=== PATIENT | female | born 1950 | race Two or more races ===

== ENCOUNTER 2016-07-28 07:28 | Outpatient (CLI) | payer OTHER ==
[2016-07-28 07:55] LABS: % BASOPHILS 0.4 % (0.0-2.0); % EOSINOPHILS 2.7 % (0.0-5.0); % LYMPHOCYTES 29.5 % (20.0-50.0); % MONOCYTES 6.6 % (2.0-10.0); % NEUTROPHILS 60.8 % (40.0-80.0); HEMATOCRIT 43.6 % (35.0-45.0); HEMOGLOBIN 14.8 gm/dL (11.7-16.1); MEAN CELL VOLUME 84.7 fl (81-100); MEAN CORPUSCULAR HEMOGLOBIN 28.8 pg (27.0-31.0); MEAN PLATELET VOLUME 7.9 fl; NEUTROPHILE ABSOLUTE 3.4 Th/cmm (1.8-8.0); PLATELET COUNT 227 Th/cmm (150-400); RED BLOOD COUNT 5.15 Mil/cmm (3.80-5.20); RED CELL DISTRIBUTION WIDTH 11.4 % (11.5-20.0)
[2016-07-28 07:58] LABS: WHITE BLOOD COUNT 5.5 Th/cmm (4.8-10.8)
[2016-07-28 08:15] LABS: ALB/GLOB RATIO 1.4 (1.0-1.8); ALKALINE PHOSPHATASE 67 U/L (34-104); ANION GAP 13.8 (7.0-16.0); BILIRUBIN,TOTAL 0.8 mg/dL (0.3-1.0); BUN - UREA NITROGEN 22 mg/dL (7-25); BUN/CREATININE RATIO 27.5; CALCIUM SERUM 9.8 mg/dL (8.6-10.3); CARBON DIOXIDE 25.4 mEq/L (21.0-31.0); CHLORIDE 103 mEq/L (98-107); CHOLESTEROL 228 mg/dL (<200); CREATININE - SERUM 0.8 mg/dL (0.6-1.2); GLUCOSE 131 mg/dL (70-105); POTASSIUM SERUM 4.2 mEq/L (3.5-5.1); SGOT 25 U/L (13-39); SGPT/ALT 21 U/L (7-52); SODIUM SERUM 138 mEq/L (136-145); TRIGLYCERIDES 102 mg/dL (<150)
== END 2016-07-28 08:00 | disposition home or self-care (01) ==
LOC: LAB 07:28
PROVIDERS: ATTEND Internal Medicine
DX: N18.9 Chronic kidney disease, unspecified (principal)
CPT/HCPCS: 36415-UA; 80053-TC; 80061-TC; 83036-90; 85025-TC

== ENCOUNTER 2016-10-22 14:05 | Emergency (ER) | payer OTHER ==
--- NOTE | 2016-10-22 14:39 | ED Physician Chart ---
Chief Complaint/HPI - Patient Information Date Seen:: 10/22/16 Time Seen:: 14:15 Chief Complaint:: headache back pain and dizziness History of Present Illness:: Patient developed headache, back pain and dizziness this morning. She's had no cough, vomiting or diarrhea. Patient felt warm and had chills. Allergies:: Allergies Allergy/AdvReac Type Severity Reaction Status Date / Time No Known Allergies Allergy Verified 01/20/16 09:22 Review of Systems - Review of Systems General/Constitutional: Fever, Chills Skin: No skin lesions Head: No headache, Light headed Eyes: No loss of vision ENT: No earache, No sore throat Neck: No neck pain Cardio Vascular: No chest pain, No edema Pulmonary: No SOB, No cough GI: No nausea, No vomiting, No diarrhea G/U: No dysuria Musculoskeletal: No bone or joint pain, No back pain Endocrine: No polyuria, Polydipsia Psychiatric: No prior psych history, No depression Hematopoietic: No bruising Allergic/Immuno: No urticaria Neurological: No syncope, No focal symptoms Past Medical History - Past Medical History Past Medical History: DM Family History: Diabetes Melitus, HTN Social History: Non Smoker, No Alcohol Surgical History: other (varicose veins) Psychiatricy History: None Medication: Reviewed Family Medical History - Family Member Mother Living Status: Still Living Hx Family Diabetes: Yes Physical Exam - Physical Examination General/Constitutional: Well-developed, well-nourished, Alert Head: Atraumatic Eyes: Lids, conjuctiva normal, PERRL Skin: Nl inspection, No rash, No skin lesions, No ecchymosis ENMT: External ears, nose nl, TM canals nl, Nasal exam nl, Lips, teeth, gums nl , Oropharynx nl, Tonsils nl Neck: No nuchal rigidity Respiratory: Nl effort/Exclusion, Clear to Auscultation, No Wheeze/Rhonchi/Rales Cardio Vascular: RRR, No murmur, gallop, rubs GI: No organomegaly, No hernia, Normal BS's, Nondistended Other GI comments:: Left lower quadrant tenderness : No CVA tenderness Extremities: Normal digits & nails Neuro/Psych: Alert/oriented, No focal deficits Misc: Normal back Labs/Radiology/EKG Results - Lab Results Results: Laboratory Results - last 24 hr 10/22/16 10/22/16 14:40 14:40 WBC 5.0 RBC 4.91 Hgb 13.8 Hct 40.5 MCV 82.4 MCH 28.1 MCHC Differential 34.1 RDW 12.0 Plt Count 186 MPV 7.8 Neutrophils % 76.5 Lymphocytes % 14.0 L Monocytes % 8.0 Eosinophils % 1.0 Basophils % 0.5 Sodium 133 L Potassium 4.2 Chloride 104 Carbon Dioxide 27.1 Anion Gap 6.1 L BUN 18 Creatinine 0.9 Est GFR ( Amer) > 60.0 Est GFR (Non-Af Amer) > 60.0 BUN/Creatinine Ratio 20.0 Glucose 145 H Calcium 9.4 - EKG Interpretations Rate & Rhythm: sinus tach rate 111 [place]: right Comments:: incomplete RBBB Assessment - Assessment General Assessment: At 1538 patient's dizziness was slightly improved. We'll give the patient Tylenol for her headache before discharge ED Septic Shock - . Is Septic Shock (SBP<90, OR Lactate>4 mmol\L) present?: No Reassessment (Disposition) - Reassessment Reassessment Condition:: Improved - Diagnosis Diagnosis:: Acute viral syndrome; benign positional vertigo - Aftercare/Follow up Instructions Aftercare/Follow-Up Instructions:: Refer to Discharge Instructions Medication Prescribed:: Antivert 25 mg #20 to take 13 times a day - Patient Disposition Discharge/Transfer:: Home Condition at Disposition:: Stable, Improved
[2016-10-22 14:48] LABS: % BASOPHILS 0.5 % (0.0-2.0); % NEUTROPHILS 76.5 % (40.0-80.0); HEMATOCRIT 40.5 % (35.0-45.0); HEMOGLOBIN 13.8 gm/dL (11.7-16.1); MEAN CELL VOLUME 82.4 fl (81-100); MEAN CORPUSCULAR HEMOGLOBIN 28.1 pg (27.0-31.0); MEAN CORPUSCULAR HGB CONC 34.1 pg (28.0-36.0); MEAN PLATELET VOLUME 7.8 fl; NEUTROPHILE ABSOLUTE 3.9 Th/cmm (1.8-8.0); PLATELET COUNT 186 Th/cmm (150-400); RED BLOOD COUNT 4.91 Mil/cmm (3.80-5.20)
[2016-10-22 15:02] LABS: ANION GAP 6.1 (7.0-16.0); BUN - UREA NITROGEN 18 mg/dL (7-25); CALCIUM SERUM 9.4 mg/dL (8.6-10.3); CARBON DIOXIDE 27.1 mEq/L (21.0-31.0); CHLORIDE 104 mEq/L (98-107); CREATININE - SERUM 0.9 mg/dL (0.6-1.2); GLUCOSE 145 mg/dL (70-105); POTASSIUM SERUM 4.2 mEq/L (3.5-5.1); SODIUM SERUM 133 mEq/L (136-145)
== END 2016-10-22 16:05 | disposition home or self-care (01) ==
LOC: ER 14:05
DX: H81.10 Benign paroxysmal vertigo, unspecified ear (principal); B34.9 Viral infection, unspecified
CPT/HCPCS: 36415-UA; 80048-TC; 85025-TC; 93005

== ENCOUNTER 2016-10-24 08:11 | Outpatient (CLI) | payer OTHER ==
[2016-10-24 08:46] LABS: RED CELL DISTRIBUTION WIDTH 12.4 % (11.5-20.0)
[2016-10-24 08:52] LABS: HEMOGLOBIN 15.3 gm/dL (11.7-16.1); MEAN CELL VOLUME 84.3 fl (81-100); MEAN CORPUSCULAR HEMOGLOBIN 27.9 pg (27.0-31.0); MEAN CORPUSCULAR HGB CONC 33.1 pg (28.0-36.0); MEAN PLATELET VOLUME 8.1 fl; PLATELET COUNT 185 Th/cmm (150-400); WHITE BLOOD COUNT 4.5 Th/cmm (4.8-10.8)
[2016-10-24 09:01] LABS: HEMATOCRIT 46.3 % (35.0-45.0)
[2016-10-24 09:10] LABS: ALB/GLOB RATIO 1.3 (1.0-1.8); ALKALINE PHOSPHATASE 57 U/L (34-104); ANION GAP 4.9 (7.0-16.0); BILIRUBIN,TOTAL 0.6 mg/dL (0.3-1.0); BUN - UREA NITROGEN 16 mg/dL (7-25); CALCIUM SERUM 9.3 mg/dL (8.6-10.3); CARBON DIOXIDE 27.7 mEq/L (21.0-31.0); CHLORIDE 105 mEq/L (98-107); CHOLESTEROL 249 mg/dL (<200); GLUCOSE 135 mg/dL (70-105); POTASSIUM SERUM 4.6 mEq/L (3.5-5.1); SGOT 42 U/L (13-39); SGPT/ALT 36 U/L (7-52); SODIUM SERUM 133 mEq/L (136-145); TRIGLYCERIDES 138 mg/dL (<150)
[2016-10-24 09:30] LABS: BAND NEUTROPHILE 4 % (0-10); EOSINOPHIL 1 % (0-5); NEUTROPHILS 45 % (40-80); TOTAL CELLS COUNTED 100
[2016-10-24 09:31] LABS: PLATELET ESTIMATE ADEQUATE (NORMAL)
== END 2016-10-24 08:57 | disposition home or self-care (01) ==
LOC: LAB 08:11
PROVIDERS: ATTEND Internal Medicine
DX: E11.21 Type 2 diabetes mellitus with diabetic nephropathy (principal); E78.5 Hyperlipidemia, unspecified; K21.9 Gastro-esophageal reflux disease without esophagitis; I10 Essential (primary) hypertension
CPT/HCPCS: 36415-UA; 80053-TC; 80061-TC; 82570-TC; 83036-90; 84156-TC; 85007-TC; 85027-TC

== ENCOUNTER 2017-02-09 15:24 | Outpatient (CLI) | payer OTHER ==
[2017-02-09 16:12] LABS: URINE BILIRUBIN NEGATIVE (NEGATIVE); URINE COLOR RED; URINE GLUCOSE (UA) 100 mg/dL (NEGATIVE); URINE KETONE NEGATIVE (NEGATIVE)
[2017-02-09 16:13] LABS: URINE BLOOD LARGE (NEGATIVE)
[2017-02-09 16:14] LABS: URINE PROTEIN >100 mg/dL (NEGATIVE); URINE RBC >100 /hpf (0-5)
[2017-02-09 16:23] LABS: URINE BACTERIA MANY /hpf (NONE SEEN); URINE EPITHELIAL CELLS NONE SEEN /lpf (FEW); URINE WBC >100 /hpf (0-5)
== END 2017-02-09 15:45 ==
LOC: LAB 15:24
DX: R80.9 Proteinuria, unspecified (principal)
CPT/HCPCS: 81001-TC; 87086-90

== ENCOUNTER 2017-03-04 06:59 | Outpatient (CLI) | payer OTHER ==
[2017-03-04 07:28] LABS: % BASOPHILS 0.2 % (0.0-2.0); % EOSINOPHILS 2.5 % (0.0-5.0); % LYMPHOCYTES 29.5 % (20.0-50.0); % MONOCYTES 7.8 % (2.0-10.0); HEMATOCRIT 43.7 % (41.0-60); HEMOGLOBIN 14.7 gm/dL (12-16); MEAN CELL VOLUME 85.9 fl (81-100); MEAN CORPUSCULAR HEMOGLOBIN 28.9 pg (27.0-31.0); MEAN CORPUSCULAR HGB CONC 33.7 pg (28.0-36.0); MEAN PLATELET VOLUME 7.8 fl; NEUTROPHILE ABSOLUTE 3.6 Th/cmm (1.8-8.0); RED BLOOD COUNT 5.09 Mil/cmm (3.80-5.20); RED CELL DISTRIBUTION WIDTH 11.8 % (11.5-20.0)
[2017-03-04 07:32] LABS: WHITE BLOOD COUNT 5.9 Th/cmm (4.8-10.8)
[2017-03-04 07:33] LABS: PLATELET COUNT 246 Th/cmm (150-400)
[2017-03-04 07:58] LABS: ALB/GLOB RATIO 1.5 (1.0-1.8); ALKALINE PHOSPHATASE 56 U/L (34-104); ANION GAP 7.8 (7.0-16.0); BILIRUBIN,TOTAL 0.8 mg/dL (0.3-1.0); BUN - UREA NITROGEN 25 mg/dL (7-25); BUN/CREATININE RATIO 31.3; CALCIUM SERUM 9.6 mg/dL (8.6-10.3); CARBON DIOXIDE 29.6 mEq/L (21.0-31.0); CHLORIDE 104 mEq/L (98-107); CHOLESTEROL 254 mg/dL (<200); CREATININE - SERUM 0.8 mg/dL (0.6-1.2); GLUCOSE 117 mg/dL (70-105); POTASSIUM SERUM 4.4 mEq/L (3.5-5.1); SGOT 31 U/L (13-39); SGPT/ALT 27 U/L (7-52); SODIUM SERUM 137 mEq/L (136-145); TRIGLYCERIDES 142 mg/dL (<150)
[2017-03-05 13:14] LABS: MICROALBUMIN RANDOM RUINE 11.1 ug/mL (Not Estab.)
== END 2017-03-04 07:23 | disposition home or self-care (01) ==
LOC: LAB 06:59
PROVIDERS: ATTEND Internal Medicine
DX: E11.22 Type 2 diabetes mellitus with diabetic chronic kidney disease (principal); N18.3 Chronic kidney disease, stage 3 (moderate); E78.5 Hyperlipidemia, unspecified
CPT/HCPCS: 36415-UA; 80053-TC; 80061-TC; 82043-90; 83036-90; 85025-TC

== ENCOUNTER 2017-06-01 06:56 | Outpatient (CLI) | payer OTHER ==
[2017-06-01 08:12] LABS: % BASOPHILS 0.8 % (0.0-2.0); % EOSINOPHILS 2.7 % (0.0-5.0); % LYMPHOCYTES 25.8 % (20.0-50.0); % MONOCYTES 6.7 % (2.0-10.0); EOSINOPHILE ABSOLUTE 0.1 Th/cmm (0.1-0.4); HEMATOCRIT 43.8 % (41.0-60); HEMOGLOBIN 14.7 gm/dL (12-16); LYMPHOCYTE ABSOLUTE 1.4 Th/cmm (1.5-3.0); MEAN CELL VOLUME 85.1 fl (81-100); MEAN CORPUSCULAR HEMOGLOBIN 28.5 pg (27.0-31.0); MEAN CORPUSCULAR HGB CONC 33.5 pg (28.0-36.0); MEAN PLATELET VOLUME 7.6 fl; MONOCYTE ABSOLUTE 0.4 Th/cmm (0.3-1.0); NEUTROPHILE ABSOLUTE 3.6 Th/cmm (1.8-8.0); PLATELET COUNT 274 Th/cmm (150-400); RED BLOOD COUNT 5.15 Mil/cmm (3.80-5.20); RED CELL DISTRIBUTION WIDTH 12.3 % (11.5-20.0); WHITE BLOOD COUNT 5.5 Th/cmm (4.8-10.8)
[2017-06-01 08:47] LABS: ALB/GLOB RATIO 1.7 (1.0-1.8); ALBUMIN 4.5 gm/dL (3.7-5.3); ALKALINE PHOSPHATASE 62 U/L (34-104); ANION GAP 9.8 (7.0-16.0); BUN - UREA NITROGEN 22 mg/dL (7-25); CALCIUM SERUM 9.6 mg/dL (8.6-10.3); CARBON DIOXIDE 28.4 mEq/L (21.0-31.0); CHLORIDE 103 mEq/L (98-107); CHOLESTEROL 223 mg/dL (<200); CREATININE - SERUM 0.9 mg/dL (0.6-1.2); GFR AFRICAN-AMERICAN > 60.0 ml/min (>90); GFR NON AFRICAN-AMERICAN > 60.0 ml/min; GLUCOSE 148 mg/dL (70-105); HDL -HIGH DENSITY LIPOPROTEIN 61 mg/dL (23-92); POTASSIUM SERUM 4.2 mEq/L (3.5-5.1); SGOT 28 U/L (13-39); SGPT/ALT 26 U/L (7-52); SODIUM SERUM 137 mEq/L (136-145); TOTAL PROTEIN,SERUM 7.2 gm/dL (6.0-8.3); TRIGLYCERIDES 139 mg/dL (<150)
[2017-06-01 14:46] LABS: A1C % 7.6 % (4.0-6.0)
== END 2017-06-01 07:50 | disposition home or self-care (01) ==
LOC: LAB 06:56
PROVIDERS: ATTEND Internal Medicine
DX: E11.9 Type 2 diabetes mellitus without complications (principal)
CPT/HCPCS: 36415-UA; 80053-TC; 80061-TC; 83036-90; 85025-TC

== ENCOUNTER 2018-02-09 07:03 | Outpatient (CLI) | payer OTHER ==
[2018-02-09 07:37] LABS: % BASOPHILS 0.9 % (0.0-2.0); % EOSINOPHILS 2.8 % (0.0-5.0); % LYMPHOCYTES 12.6 % (20.0-50.0); % MONOCYTES 5.4 % (2.0-10.0); % NEUTROPHILS 78.3 % (40.0-80.0); EOSINOPHILE ABSOLUTE 0.1 Th/cmm (0.1-0.4); HEMATOCRIT 41.5 % (41.0-60); HEMOGLOBIN 14.1 gm/dL (12-16); LYMPHOCYTE ABSOLUTE 0.7 Th/cmm (1.5-3.0); MEAN CORPUSCULAR HEMOGLOBIN 28.4 pg (27.0-31.0); MEAN CORPUSCULAR HGB CONC 33.9 pg (28.0-36.0); MEAN PLATELET VOLUME 7.9 fl; MONOCYTE ABSOLUTE 0.3 Th/cmm (0.3-1.0); NEUTROPHILE ABSOLUTE 4.2 Th/cmm (1.8-8.0); PLATELET COUNT 205 Th/cmm (150-400); RED BLOOD COUNT 4.94 Mil/cmm (3.80-5.20); RED CELL DISTRIBUTION WIDTH 12.1 % (11.5-20.0); WHITE BLOOD COUNT 5.3 Th/cmm (4.8-10.8)
[2018-02-09 07:56] LABS: ALB/GLOB RATIO 1.8 (1.0-1.8); ALBUMIN 4.2 gm/dL (3.7-5.3); ALKALINE PHOSPHATASE 69 U/L (34-104); ANION GAP 9.3 (7.0-16.0); BILIRUBIN,TOTAL 0.6 mg/dL (0.3-1.0); BUN - UREA NITROGEN 24 mg/dL (7-25); CALCIUM SERUM 9.5 mg/dL (8.6-10.3); CARBON DIOXIDE 27.4 mEq/L (21.0-31.0); CHLORIDE 103 mEq/L (98-107); CHOLESTEROL 176 mg/dL (<200); GFR AFRICAN-AMERICAN > 60.0 ml/min (>90); GFR NON AFRICAN-AMERICAN 58.6 ml/min; GLUCOSE 139 mg/dL (70-105); HDL -HIGH DENSITY LIPOPROTEIN 38 mg/dL (23-92); POTASSIUM SERUM 4.7 mEq/L (3.5-5.1); SGOT 22 U/L (13-39); SGPT/ALT 18 U/L (7-52); SODIUM SERUM 135 mEq/L (136-145); TOTAL PROTEIN,SERUM 6.6 gm/dL (6.0-8.3); TRIGLYCERIDES 200 mg/dL (<150)
== END 2018-02-09 07:30 | disposition home or self-care (01) ==
LOC: LAB 07:03
PROVIDERS: ATTEND Internal Medicine
DX: I12.9 Hypertensive chronic kidney disease with stage 1 through stage 4 chronic kidney disease, or unspecified chronic kidney disease (principal); E11.22 Type 2 diabetes mellitus with diabetic chronic kidney disease; N18.3 Chronic kidney disease, stage 3 (moderate); R80.9 Proteinuria, unspecified
CPT/HCPCS: 36415-UA; 80053-TC; 80061-TC; 83036-90; 85025-TC

== ENCOUNTER 2018-07-20 06:55 | Outpatient (CLI) | payer OTHER ==
[2018-07-20 07:26] LABS: % BASOPHILS 0.2 % (0.0-2.0); % EOSINOPHILS 5.2 % (0.0-5.0); % LYMPHOCYTES 39.6 % (20.0-50.0); % MONOCYTES 11.4 % (2.0-10.0); % NEUTROPHILS 43.6 % (40.0-80.0); EOSINOPHILE ABSOLUTE 0.2 Th/cmm (0.1-0.4); HEMATOCRIT 45.8 % (41.0-60); HEMOGLOBIN 14.9 gm/dL (12-16); LYMPHOCYTE ABSOLUTE 1.8 Th/cmm (1.5-3.0); MEAN CELL VOLUME 83.9 fl (81-100); MEAN CORPUSCULAR HEMOGLOBIN 27.3 pg (27.0-31.0); MEAN CORPUSCULAR HGB CONC 32.6 pg (28.0-36.0); MEAN PLATELET VOLUME 7.7 fl; MONOCYTE ABSOLUTE 0.5 Th/cmm (0.3-1.0); NEUTROPHILE ABSOLUTE 2.1 Th/cmm (1.8-8.0); PLATELET COUNT 229 Th/cmm (150-400); RED BLOOD COUNT 5.45 Mil/cmm (3.80-5.20); RED CELL DISTRIBUTION WIDTH 12.6 % (11.5-20.0); WHITE BLOOD COUNT 4.6 Th/cmm (4.8-10.8)
[2018-07-20 07:46] LABS: ALB/GLOB RATIO 1.5 (1.0-1.8); ALBUMIN 4.4 gm/dL (3.7-5.3); ALKALINE PHOSPHATASE 72 U/L (34-104); BILIRUBIN,TOTAL 0.6 mg/dL (0.3-1.0); BUN - UREA NITROGEN 14 mg/dL (7-25); CALCIUM SERUM 9.3 mg/dL (8.6-10.3); CARBON DIOXIDE 26.7 mEq/L (21.0-31.0); CHLORIDE 104 mEq/L (98-107); CHOLESTEROL 192 mg/dL (<200); GFR AFRICAN-AMERICAN > 60.0 ml/min (>90); GFR NON AFRICAN-AMERICAN 58.6 ml/min; GLUCOSE 166 mg/dL (70-105); HDL -HIGH DENSITY LIPOPROTEIN 47 mg/dL (23-92); POTASSIUM SERUM 4.7 mEq/L (3.5-5.1); SGOT 23 U/L (13-39); SGPT/ALT 17 U/L (7-52); SODIUM SERUM 140 mEq/L (136-145); TOTAL PROTEIN,SERUM 7.4 gm/dL (6.0-8.3); TRIGLYCERIDES 105 mg/dL (<150)
[2018-07-20 11:01] LABS: URINE SOURCE RANDOM
[2018-07-20 11:07] LABS: URINE BILIRUBIN NEGATIVE (NEGATIVE); URINE BLOOD TRACE (NEGATIVE); URINE GLUCOSE (UA) NEGATIVE (NEGATIVE); URINE KETONE TRACE mg/dL (NEGATIVE); URINE LEUKOCYTE ESTERASE TRACE (NEGATIVE); URINE MICROSCOPIC INDICATED? YES; URINE NITRATE NEGATIVE (NEGATIVE); URINE PROTEIN TRACE mg/dL (NEGATIVE); URINE UROBILINOGEN 0.2 E.U./dL (0.2 - 1.0)
[2018-07-20 11:25] LABS: URINE CLARITY SLIGHTLY HAZY (CLEAR); URINE COLOR YELLOW
[2018-07-20 11:29] LABS: URINE BACTERIA FEW /hpf (NONE SEEN); URINE EPITHELIAL CELLS FEW /lpf (FEW)
== END 2018-07-20 07:16 | disposition home or self-care (01) ==
LOC: LAB 06:55
PROVIDERS: ATTEND Internal Medicine
DX: N17.9 Acute kidney failure, unspecified (principal); I12.9 Hypertensive chronic kidney disease with stage 1 through stage 4 chronic kidney disease, or unspecified chronic kidney disease; E11.22 Type 2 diabetes mellitus with diabetic chronic kidney disease; N18.3 Chronic kidney disease, stage 3 (moderate); E11.21 Type 2 diabetes mellitus with diabetic nephropathy
CPT/HCPCS: 36415-UA; 80053-TC; 80061-TC; 81001-TC; 82570-TC; 83036-90; 85025-TC

== ENCOUNTER 2019-01-18 08:26 | Outpatient (CLI) | payer OTHER ==
[2019-01-18 08:36] LABS: URINE SOURCE RANDOM
[2019-01-18 09:18] LABS: EOSINOPHILE ABSOLUTE 0.1 Th/cmm (0.1-0.4); MEAN CORPUSCULAR HEMOGLOBIN 27.9 pg (27.0-31.0); MONOCYTE ABSOLUTE 0.4 Th/cmm (0.3-1.0); NEUTROPHILE ABSOLUTE 3.4 Th/cmm (1.8-8.0)
[2019-01-18 09:31] LABS: % BASOPHILS 0.6 % (0.0-2.0); % EOSINOPHILS 1.9 % (0.0-5.0); % LYMPHOCYTES 32.1 % (20.0-50.0); % MONOCYTES 7.4 % (2.0-10.0); HEMATOCRIT 46.2 % (41.0-60); HEMOGLOBIN 15.1 gm/dL (12-16); LYMPHOCYTE ABSOLUTE 1.8 Th/cmm (1.5-3.0); MEAN CELL VOLUME 85.2 fl (81-100); MEAN CORPUSCULAR HGB CONC 32.7 pg (28.0-36.0); PLATELET COUNT 263 Th/cmm (150-400); RED BLOOD COUNT 5.43 Mil/cmm (3.80-5.20); RED CELL DISTRIBUTION WIDTH 13.1 % (11.5-20.0); WHITE BLOOD COUNT 5.7 Th/cmm (4.8-10.8)
[2019-01-18 09:42] LABS: ALB/GLOB RATIO 1.5 (1.0-1.8); ALBUMIN 4.2 gm/dL (3.7-5.3); ALKALINE PHOSPHATASE 70 U/L (34-104); BILIRUBIN,TOTAL 0.9 mg/dL (0.3-1.0); BUN - UREA NITROGEN 18 mg/dL (7-25); CALCIUM SERUM 9.7 mg/dL (8.6-10.3); CARBON DIOXIDE 23.4 mEq/L (21.0-31.0); CHLORIDE 104 mEq/L (98-107); CHOLESTEROL 248 mg/dL (<200); CREATININE - SERUM 0.9 mg/dL (0.6-1.2); GFR AFRICAN-AMERICAN > 60.0 ml/min (>90); GFR NON AFRICAN-AMERICAN > 60.0 ml/min; GLUCOSE 147 mg/dL (70-105); HDL -HIGH DENSITY LIPOPROTEIN 44 mg/dL (23-92); POTASSIUM SERUM 4.4 mEq/L (3.5-5.1); SGOT 18 U/L (13-39); SGPT/ALT 15 U/L (7-52); SODIUM SERUM 136 mEq/L (136-145); TRIGLYCERIDES 264 mg/dL (<150)
[2019-01-18 10:57] LABS: URINE BILIRUBIN NEGATIVE (NEGATIVE); URINE BLOOD TRACE (NEGATIVE); URINE GLUCOSE (UA) NEGATIVE (NEGATIVE); URINE KETONE NEGATIVE (NEGATIVE); URINE LEUKOCYTE ESTERASE TRACE (NEGATIVE); URINE MICROSCOPIC INDICATED? YES; URINE NITRATE NEGATIVE (NEGATIVE); URINE PROTEIN NEGATIVE (NEGATIVE); URINE UROBILINOGEN 0.2 E.U./dL (0.2 - 1.0)
[2019-01-18 11:27] LABS: URINE CLARITY CLEAR (CLEAR); URINE COLOR YELLOW
[2019-01-18 11:28] LABS: URINE BACTERIA NONE SEEN /hpf (NONE SEEN); URINE EPITHELIAL CELLS FEW /lpf (FEW)
[2019-01-19 11:32] LABS: A1C 7.4 % (4.8-5.6)
== END 2019-01-18 09:05 | disposition home or self-care (01) ==
LOC: LAB 08:26
DX: N17.9 Acute kidney failure, unspecified (principal); E11.21 Type 2 diabetes mellitus with diabetic nephropathy; E11.22 Type 2 diabetes mellitus with diabetic chronic kidney disease; I12.9 Hypertensive chronic kidney disease with stage 1 through stage 4 chronic kidney disease, or unspecified chronic kidney disease; N18.3 Chronic kidney disease, stage 3 (moderate)
CPT/HCPCS: 36415-UA; 80053-TC; 80061-TC; 81001-TC; 82306-90; 83036-90; 85025-TC